=== PATIENT | male | born 2000 | race Caucasian/White ===

== ENCOUNTER 2024-08-10 16:40 | Emergency (ER) | payer OTHER, BC ==
[~2024-08-10] VITALS: Ht 182 cm; Wt 95.3 kg
[2024-08-10] MEDS ORDERED: VIBRAMYCIN100 MG PO (18:37)
== END 2024-08-10 18:57 | disposition home or self-care (01) ==
LOC: ED 16:40
DX: L03.116 Cellulitis of left lower limb (principal)